=== PATIENT | female | born 1950 | race Two or more races ===

== ENCOUNTER 2020-05-13 07:41 | Outpatient (CLI) | payer OTHER ==
[~2020-05-13 07:41] MED LIST: AVAPRO75 MG; NOVOLIN 70100 UNITS/; PARA LA PRESION
== END 2020-05-13 08:20 | disposition home or self-care (01) ==
LOC: TOM 07:41
PROVIDERS: ATTEND Internal Medicine Hematology & Oncology
DX: K63.5 Polyp of colon (principal); Z12.11 Encounter for screening for malignant neoplasm of colon